=== PATIENT | female | born 1965 | race Caucasian/White ===

== ENCOUNTER 2016-12-03 09:09 | Day surgery (SDC) | payer BC | END 2016-12-03 09:36 | disposition home or self-care (01) | LOC: OUT 09:09 | PROVIDERS: ATTEND Orthopaedic Surgery | DX: Z02.9 Encounter for administrative examinations, unspecified (principal) ==

== ENCOUNTER 2016-12-08 16:05 | Observation (INO) | payer BC ==
[~2016-12-08] VITALS: Ht 162.6 cm; Wt 91.0 kg
[2016-12-08] MEDS ORDERED: MELO7.5T5 PO (16:34)
[2016-12-08] MEDS ORDERED: PREG100C PO (16:34)
[2016-12-08] MEDS ORDERED: ESOM40CA PO (16:34)
[2016-12-08] MEDS ORDERED: LACTATED RINGERS 1,000 ML IV SCH ×2 (16:52→21:50)
[2016-12-08 16:54] VITALS: BP 129/69
[2016-12-08] MEDS ORDERED: FENTANYL PF 250 MCG/5ML ONE (17:24)
[2016-12-08] MEDS ORDERED: MIDAZOLAM 1 MG/ML, 2ML ONE (17:25)
[2016-12-08] MEDS ORDERED: CEFAZOLIN 1,000 MG ONE (18:03)
[2016-12-08] MEDS ORDERED: ONDANSETRON 2MG/ML, 2ML ONE (18:03)
[2016-12-08] MEDS ORDERED: PROPOFOL 10 MG/ML, 20ML ONE (18:03)
[2016-12-08] MEDS ORDERED: ROCURONIUM 10 MG/ML ONE (18:03)
[2016-12-08] MEDS ORDERED: DEXAMETHASONE 4 MG/ML, 1ML ONE (18:03)
[2016-12-08] MEDS ORDERED: SUCCINYLCHOLINE 20 MG/ML, 10ML ONE (18:03)
[2016-12-08] MEDS ORDERED: METOCLOPRAMIDE 5 MG/ML, 2ML ONE (18:03)
[2016-12-08] MEDS ORDERED: ONDANSETRON 2MG/ML, 2ML IVPush PRN (19:00)
[2016-12-08] MEDS ORDERED: MIDAZOLAM 1 MG/ML, 2ML IV PRN (19:00)
[2016-12-08] MEDS ORDERED: OXYcodone 5 MG/5 ML ORAL.SOL UDC PO PRN (19:00)
[2016-12-08] MEDS ORDERED: MEPERIDINE/PF 25MG/0.5ML IVPush PRN (19:00)
[2016-12-08] MEDS ORDERED: PROMETHAZINE 25 MG/ML, 1ML IV PRN (19:00)
[2016-12-08] MEDS ORDERED: LABETALOL 5MG/ML, 20ML IV PRN (19:00)
[2016-12-08] MEDS ORDERED: hydrALAzine 20 MG/ML, 1ML IV PRN (19:00)
[2016-12-08] MEDS ORDERED: FENTANYL PF 100 MCG/2ML ONE (20:15)
[2016-12-08] MEDS ORDERED: MEPERIDINE/PF 50 MG/ML ONE (20:15)
[2016-12-08] MEDS: FENTANYL PF 100 MCG/2ML IV PRN ×2 (20:30→20:36)
[2016-12-08] MEDS ORDERED: HYDROmorphone 1 MG/ML, 1ML ONE (20:52)
[2016-12-08] MEDS: HYDROmorphone 1 MG/ML, 1ML IV PRN ×2 (20:52→20:57)
[2016-12-08] MEDS ORDERED: OXYcodone/APAP 5/325MG TABLET PO PRN (22:00)
[2016-12-08] MEDS ORDERED: ONDANSETRON 2MG/ML, 2ML IV PRN (22:00)
[2016-12-08] MEDS ORDERED: morphine SULFATE 10 MG/ML, 1ML IV PRN (22:00)
== END 2016-12-09 06:00 | disposition home or self-care (01) ==
LOC: OR 16:05 → 4NOR 21:27 → OR 21:31 → 4NOR 21:31
PROVIDERS: ADMIT Orthopaedic Surgery; ATTEND Orthopaedic Surgery
DX: M24.671 Ankylosis, right ankle (principal); M21.961 Unspecified acquired deformity of right lower leg; M25.371 Other instability, right ankle; M20.41 Other hammer toe(s) (acquired), right foot; M24.571 Contracture, right ankle
CPT/HCPCS: 27698; 28232; 28285; 28313; 29892; 29898; 96374; C1713; G0378; J0330; J0690; J1100; J1170; J2175; J2250; J2405; J2704; J2765; J3010; J7120